=== PATIENT | male | born 1995 | race Caucasian/White ===

== ENCOUNTER 2018-10-12 18:30 | Emergency (ER) | payer OTHER ==
--- NOTE | 2018-10-12 19:41 | CT ---
EXAMINATION TYPE: CT brain karolyn wo con DATE OF EXAM: 10/12/2018 COMPARISON: 12/09/2013 HISTORY: 23-year-old male with Headache post fall CT DLP: 1279 mGycm Automated exposure control for dose reduction was used. Technique: Examination of the head was done in axial plane without intravenous contrast. Coronal and sagittal reconstructions performed. CT of the cervical spine was obtained in axial plane without intravenous injection of contrast mater ial. Coronal and sagittal reformatted images were obtained from the axial views for evaluation of f ractures, spinal alignment and canal. FINDINGS: Head: There is no evidence of acute intracranial hemorrhage, acute ischemic changes, mass, mass-effect, or extra-axial fluid collection. There is no effacement of cerebral sulci or basal subarachnoid cister ns. There is no hydrocephalus. There is no midline shift. Turner-white matter distinction is preserv ed. Scattered mild to moderate mucosal thickening ethmoid air cells. Orbits and globes are intact. Mastoi d air cells are well pneumatized. Cervical spine: The alignment of the cervical spine is normal on coronal and reformatted images. Dextroconvex curvatu re centered along the cervicothoracic junction may be positional. Scattered cervical lymph nodes shelly uring up to 1.2 cm likely reactive/post inflammatory. Straightening of the normal cervical lordosis. There is no cranial vertebral abnormality. Fracture of the cervical spine is not seen. There is no ev idence of focal disk herniation. Assessment of the spinal canal from C6-C7 and below is limited due t o artifact from patient's shoulders. Sagittal and coronal reformatted images confirm above findings. COMBINED IMPRESSION: 1. No acute intracranial abnormality seen. 2. No acute fracture or malalignment of the cervical spine. Dextroconvex curvature along the cervicot horacic junction can be be positional, or due to scoliosis, or muscle spasm. 3. Mild chronic ethmoid sinus disease.
[2018-10-12 19:58] VITALS: RESP 16
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
[2018-10-12 20:43] VITALS: BP 125/67; PULSE 62; TEMP 97.8
== END 2018-10-12 20:40 | disposition home or self-care (01) ==
LOC: EC 18:30
DX: S06.0X9A Concussion with loss of consciousness of unspecified duration, initial encounter (principal); J32.2 Chronic ethmoidal sinusitis; F17.200 Nicotine dependence, unspecified, uncomplicated; W01.198A Fall on same level from slipping, tripping and stumbling with subsequent striking against other object, initial encounter; Y93.02 Activity, running
CPT/HCPCS: 70450; 72125; 99284

== ENCOUNTER 2021-05-06 21:28 | Emergency (ER) | payer OTHER ==
[2021-05-06 22:45] VITALS: RESP 18; TEMP 98.8
[2021-05-07 00:56] VITALS: BP 137/88; PULSE 88
[2021-05-07] MEDS ORDERED: SODIUM CHLORIDE 0.9% 1,000 ML IV STA (01:01)
[2021-05-07] MEDS ORDERED: MORPHINE SULFATE 4 MG/ML SYRINGE IV STA (01:01)
[2021-05-07] MEDS ORDERED: PANTOPRAZOLE 40 MG/10 ML VIAL IVP STA (01:01)
[2021-05-07] MEDS ORDERED: ONDANSETRON 4 MG/2 ML VIAL IVP STA (01:01)
--- NOTE | 2021-05-07 01:02 | ED ---
Abdominal Pain HPI - General Chief Complaint: Abdominal Pain Stated Complaint: Vomiting Time Seen by Provider: 05/07/21 00:48 Source: patient, RN notes reviewed, old records reviewed Mode of arrival: ambulatory Limitations: no limitations - History of Present Illness Initial Comments: This is a 26-year-old male DF for evaluation today. Patient Dese for evaluation of diffuse and generalized abdominal pain at times cramping at times localized. Symptoms began after doing some heavy lifting today at work. Patient has positive nausea positive vomiting multiple times tonight. Otherwise no recent travel history no sick contacts no fevers. Patient again aside from upper EGD and lower colonoscopy has no other recent medical history. Patient had those evaluations due to vomiting blood. Patient has no other complaints MD Complaint: abdominal pain, other (Nausea vomiting) -: hour(s) Location: diffuse, periumbilical Radiation: none Migration to: no migration Severity: moderate Severity scale (1-10): 7 Quality: cramping, stabbing Consistency: intermittent Improves With: nothing Worsens With: nothing Context: recent surgery/procedure Associated Symptoms: nausea, vomiting Treatments Prior to Arrival: other (none) - Related Data Home Medications Medication Instructions Recorded Confirmed Pantoprazole [Protonix] 40 mg PO DAILY 03/28/21 05/03/21 Allergies Allergy/AdvReac Type Severity Reaction Status Date / Time No Known Allergies Allergy Verified 05/06/21 22:41 Review of Systems ROS Statement: Those systems with pertinent positive or pertinent negative responses have been documented in the HPI. ROS Other: All systems not noted in ROS Statement are negative. Past Medical History Past Medical History: No Reported History History of Any Multi-Drug Resistant Organisms: None Reported Past Surgical History: No Surgical Hx Reported Past Psychological History: Anxiety, Depression Smoking Status: Current every day smoker Past Alcohol Use History: None Reported Past Drug Use History: None Reported General Exam Limitations: no limitations General appearance: alert, in no apparent distress Head exam: Present: atraumatic, normocephalic, normal inspection Eye exam: Present: normal appearance, PERRL, EOMI. Absent: scleral icterus, conjunctival injection, periorbital swelling ENT exam: Present: normal exam, mucous membranes moist Neck exam: Present: normal inspection. Absent: tenderness, meningismus, lymphadenopathy Respiratory exam: Present: normal lung sounds bilaterally. Absent: respiratory distress, wheezes, rales, rhonchi, stridor Cardiovascular Exam: Present: regular rate, normal rhythm, normal heart sounds. Absent: systolic murmur, diastolic murmur, rubs, gallop, clicks GI/Abdominal exam: Present: soft, tenderness (Epigastric), normal bowel sounds. Absent: distended, guarding, rebound, rigid Extremities exam: Present: normal inspection, full ROM, normal capillary refill. Absent: tenderness, pedal edema, joint swelling, calf tenderness Back exam: Present: normal inspection Neurological exam: Present: alert, oriented X3, CN II-XII intact Psychiatric exam: Present: normal affect, normal mood Skin exam: Present: warm, dry, intact, normal color. Absent: rash Course Vital Signs 05/06/21 05/07/21 22:41 00:55 Temperature 98.8 F Pulse Rate 95 88 Respiratory 18 18 Rate Blood Pressure 131/87 137/88 O2 Sat by Pulse 100 97 Oximetry - Reevaluation(s) Reevaluation #1: 05/07/21 01:09 Medical record is reviewed Reevaluation #2: 05/07/21 02:32 Symptoms remained improved here in the ER without pain Reevaluation #3: 05/07/21 02:33 Patient informed results and questions answered Medical Decision Making - Medical Decision Making 26 male DF for evaluation of abdominal pain significant. Significant abdominal pain that occurred after heavy lifting today and recent colonoscopy and EGD. Lab values computed tomography scan are normal patient can be discharged home - Lab Data Result diagrams: 05/07/21 01:16 05/07/21 01:16 Lab Results 05/07/21 05/07/21 05/07/21 Range/Units 01:16 01:16 01:16 WBC 11.0 H (3.8-10.6) k/uL RBC 5.23 (4.30-5.90) m/uL Hgb 17.4 (13.0-17.5) gm/dL Hct 50.4 (39.0-53.0) % MCV 96.4 (80.0-100.0) fL MCH 33.2 (25.0-35.0) pg MCHC 34.5 (31.0-37.0) g/dL RDW 13.5 (11.5-15.5) % Plt Count 304 (150-450) k/uL MPV 7.1 Neutrophils % 64 % Lymphocytes % 28 % Monocytes % 5 % Eosinophils % 2 % Basophils % 1 % Neutrophils # 7.1 (1.3-7.7) k/uL Lymphocytes # 3.0 (1.0-4.8) k/uL Monocytes # 0.5 (0-1.0) k/uL Eosinophils # 0.2 (0-0.7) k/uL Basophils # 0.1 (0-0.2) k/uL Sodium 138 (137-145) mmol/L Potassium 3.3 L (3.5-5.1) mmol/L Chloride 101 (98-107) mmol/L Carbon Dioxide 25 (22-30) mmol/L Anion Gap 12 mmol/L BUN 8 L (9-20) mg/dL Creatinine 0.76 (0.66-1.25) mg/dL Est GFR (CKD-EPI)AfAm >90 (>60 ml/min/1.73 sqM) Est GFR (CKD-EPI)NonAf >90 (>60 ml/min/1.73 sqM) Glucose 111 H (74-99) mg/dL Plasma Lactic Acid Lorne 1.8 (0.7-2.0) mmol/L Calcium 10.7 H (8.4-10.2) mg/dL Total Bilirubin 1.0 (0.2-1.3) mg/dL AST 42 (17-59) U/L ALT 39 (4-49) U/L Alkaline Phosphatase 72 (38-126) U/L Total Protein 7.4 (6.3-8.2) g/dL Albumin 4.7 (3.5-5.0) g/dL Amylase 44 (30-110) U/L Lipase 49 (23-300) U/L Serum Alcohol <10 mg/dL - Radiology Data Radiology results: report reviewed (CT abdomen and pelvis is negative for acute disease), image reviewed Disposition Clinical Impression: Abdominal pain Disposition: HOME SELF-CARE Condition: Good Instructions (If sedation given, give patient instructions): Abdominal Pain (ED) Is patient prescribed a controlled substance at d/c from ED?: No Referrals: Albino Araiza [Primary Care Provider] - 1-2 days
[2021-05-07 01:32] LABS: Basophils # (A) 0.1 k/uL (0-0.2); Basophils % (A) 1 %; Eosinophils # (A) 0.2 k/uL (0-0.7); Eosinophils % (A) 2 %; HCT 50.4 % (39.0-53.0); HGB 17.4 gm/dL (13.0-17.5); Lymphocytes % (A) 28 %; MCH 33.2 pg (25.0-35.0); MCHC 34.5 g/dL (31.0-37.0); MCV 96.4 fL (80.0-100.0); Mean Platelet Volume 7.1; Monocytes # (A) 0.5 k/uL (0-1.0); Monocytes % (A) 5 %; Neutrophils # (A) 7.1 k/uL (1.3-7.7); Neutrophils % (A) 64 %; Platelet Count 304 k/uL (150-450); RBC 5.23 m/uL (4.30-5.90); RDW 13.5 % (11.5-15.5)
[2021-05-07 01:42] LABS: ALT 39 U/L (4-49); AST 42 U/L (17-59); African American GFR (CKD) >90 (>60 ml/min/1.73 sqM); Albumin 4.7 g/dL (3.5-5.0); Alcohol <10 mg/dL; Alkaline Phosphatase 72 U/L (38-126); Amylase 44 U/L (30-110); Anion Gap 12 mmol/L; Blood Urea Nitrogen 8 mg/dL (9-20); Calcium 10.7 mg/dL (8.4-10.2); Carbon Dioxide 25 mmol/L (22-30); Chloride 101 mmol/L (98-107); Glucose 111 mg/dL (74-99); Lipase 49 U/L (23-300); Non-African American GFR(CKD) >90 (>60 ml/min/1.73 sqM); Potassium 3.3 mmol/L (3.5-5.1); Sodium 138 mmol/L (137-145); Total Protein 7.4 g/dL (6.3-8.2)
--- NOTE | 2021-05-07 02:31 | CT ---
EXAMINATION TYPE: CT abdomen pelvis w con DATE OF EXAM: 05/07/2021 COMPARISON: Abdominal pain HISTORY: Abd. pain CT DLP: 724.2 mGycm Automated exposure control for dose reduction was used. CONTRAST: Performed with IV Contrast, patient injected with 100 mL of Isovue 300. Images obtained from the diaphragm to the floor the pelvis with IV contrast. Lung bases are clear. There is no pleural effusion. Heart size is normal. There is no pericardial eff usion. Liver spleen pancreas stomach gallbladder appear intact. The bile ducts are not dilated. There is no adrenal mass. Kidneys show satisfactory contrast opacification. There is no hydronephrosi s. Ureters are not dilated. Appendix is posterior and appears normal. There is no retroperitoneal melvin nopathy. Delayed images show normal renal excretion. Bladder distends smoothly. There is no inguinal hernia. There is no free fluid in the pelvis. There is no evidence of pelvic mass. There is no mesenteric edema. There is no ascites or free air. There is no bowel obstruction. The lumbar vertebrae have normal alignment. Posterior elements are intact. There is no compression fr acture. Bony pelvis is intact. The hip joints are intact. IMPRESSION: Negative CT scan of the abdomen pelvis. Normal appendix. Normal exam.
[2021-05-07] MEDS ORDERED: POTASSIUM CHLORIDE ER 20 MEQ TAB.ER PO STA (02:32)
== END 2021-05-07 03:09 | disposition home or self-care (01) ==
LOC: EC 21:28
DX: R10.84 Generalized abdominal pain (principal); F41.9 Anxiety disorder, unspecified; F32.A Depression, unspecified; F17.200 Nicotine dependence, unspecified, uncomplicated
CPT/HCPCS: 99284; 96374; 96375 ×2; 96361; 36415; 80053; 82150; 83605; 83690; 85025; 80320; 74177; J2270; J2405; C9113; Q9967

== ENCOUNTER 2022-01-01 16:24 | Inpatient (IN) | payer OTHER ==
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
[2022-01-01] MEDS ORDERED: HALOPERIDOL LACTATE 5 MG/ML 1 ML VIAL IM PRN (20:28)
[2022-01-01] MEDS ORDERED: ACETAMINOPHEN TAB 325 MG TAB PO PRN (20:28)
[2022-01-01] MEDS ORDERED: MAGNESIUM HYDROXIDE 2,400 MG/10 ML CUP PO PRN (20:28)
[2022-01-01] MEDS ORDERED: MAG HYDROX/AL HYDROX/SIMETH 30 ML CUP PO PRN (20:28)
[2022-01-01] MEDS: chlordiazePOXIDE 25 MG CAP PO SCH (21:20)
[2022-01-01] MEDS: LITHIUM CARBONATE 150 MG CAP PO SCH (21:20)
[2022-01-01] MEDS: lamoTRIgine 25 MG TAB PO SCH (21:20)
[2022-01-01] MEDS: diazePAM 5 MG TAB PO SCH (21:20)
[2022-01-01 22:01] LABS: AST 51 U/L (17-59); Lithium <0.2 mmol/L
--- NOTE | 2022-01-02 02:29 | P.MDCNMH ---
History of Present Illness H&P Date: 01/02/22 Chief Complaint: Medical [facility] 26 year old male with bipolar disorder, PTSD he is Seeking help for suicidal ideation he denies any hallucinations. he follows up with a therapist, however he could not schedule an appointment for meds adjustment. he denies any medical concerns , denies any fever chills, nausea vomiting, abd pain , SOB or chest pain , denies any URI. he admits to heavy smoking, occasional magic mushroom, and heavy daily alcohol consumption, last alcoholic drink yesterday Review of Systems Pertinent positives as noted in HPI. All other systems were reviewed and are negative Past Medical History Past Medical History: No Reported History History of Any Multi-Drug Resistant Organisms: None Reported Past Surgical History: No Surgical Hx Reported Past Psychological History: Anxiety, Depression Smoking Status: Current every day smoker Past Alcohol Use History: Abuse, Daily, Heavy Past Drug Use History: Marijuana - Past Family History family Family Medical History: Coronary Artery Disease (CAD), Diabetes Mellitus Medications and Allergies Home Medications Medication Instructions Recorded Confirmed Type Pantoprazole [Protonix] 40 mg PO DAILY 03/28/21 01/01/22 History ARIPiprazole [Abilify] 15 mg PO DAILY 01/01/22 01/01/22 History Citalopram Hydrobromide [CeleXA] 10 mg PO DAILY 01/01/22 01/01/22 History [place] Carbonate 150 mg PO BID 01/01/22 01/01/22 History lamoTRIgine [LaMICtal] 50 mg PO BID 01/01/22 01/01/22 History Allergies Allergy/AdvReac Type Severity Reaction Status Date / Time No Known Allergies Allergy Verified 01/01/22 21:42 Physical Exam Vitals: Vital Signs Temp Pulse Pulse Resp BP BP Pulse Ox 01/01/22 21:33 98.6 F 75 134/72 01/01/22 17:07 98.2 F 104 H 16 135/79 96 Intake and Output 01/01/22 01/01/22 01/02/22 14:59 22:59 06:59 Other: Weight 74.843 kg Constitutional: No acute distress, conversant, Eyes: Anicteric sclerae, moist conjunctiva, Pupils equal round reactive to light ENMT: NC/AT Oropharynx clear, no erythema, or exudates Neck: Supple, no masses, or JVD No carotid bruits No thyromegaly Lungs: Clear to auscultation Clear to percussion Normal respiratory effort, no accessory muscle use Cardiovascular: Heart regular in rate and rhythm, No murmurs, gallops, or rubs No peripheral edema Abdominal: Soft Nontender, no guarding, rebound or rigidity Abdomen moving with respiration Normoactive bowel sounds Skin: Normal temperature, tone, texture, turgor No induration No subcutaneous nodules No rash, lesions No ulcers Extremities: No digital cyanosis No clubbing Pedal pulses intact and symmetrical Radial pulses intact and symmetrical No calf tenderness Psychiatric: Alert and oriented to person, place and time Neuro Muscles Strength 5/5 in all 4 extremities Sensation to light touch grossly present throughout Cranial nerves II-XII grossly intact Lymphatics: no palpable cervical or supraclavicular lymph nodes Cranial Nerve Examination - Cranial Nerves Cranial Nerve II- Optic: Intact Cranial Nerve III- Oculomotor: Intact Cranial Nerve IV- Trochlear: Intact Cranial Nerve V- Trigeminal: Intact Cranial Nerve - Abducens: Intact Cranial Nerve VII- Facial: Intact Cranial Nerve VIII- Auditory: Intact Cranial Nerve IX- Glossopharyngeal: Intact Cranial Nerve X- Vagus: Intact Cranial Nerve XI- Accessory: Intact Cranial Nerve XII- Hypoglossal: Intact Assessment and Plan Assessment: depressed mood, suicidal ideation bipolar disorder management per psych alcohol abuse with heavy daily consumption counseled to quit alcohol librium TID monitor for alcohol withdrawal syndrome thiamine tobacco use nicotine replacement therapy counseled to quit smoking follow up labs Thank you for allowing us to participate in the care of this patient. We will follow peripherally. Do not hesitate to contact us with questions. Someone can be reached from the [facility] [place] hospitalist group at all hours of the day at [phone].
[2022-01-02] MEDS: lamoTRIgine 25 MG TAB PO SCH (08:37)
[2022-01-02] MEDS: THIAMINE 100 MG TAB PO SCH (08:37)
[2022-01-02] MEDS: PANTOPRAZOLE 40 MG TABLET PO SCH (08:37)
[2022-01-02] MEDS: MULTIVITAMINS, THERA 1 EACH TAB PO SCH (08:37)
[2022-01-02] MEDS: FOLIC ACID 1 MG TAB PO SCH (08:38)
[2022-01-02] MEDS: diazePAM 5 MG TAB PO SCH (08:38)
[2022-01-02] MEDS: ARIPiprazole 15 MG TAB PO SCH (08:38)
[2022-01-02] MEDS: chlordiazePOXIDE 25 MG CAP PO SCH ×4 (08:38→20:11)
[2022-01-02] MEDS: LITHIUM CARBONATE 150 MG CAP PO SCH ×2 (08:38→20:11)
[2022-01-02] MEDS: NICOTINE 14MG/24HR PATCH TRANSDERM SCH (08:38)
[2022-01-02] MEDS ORDERED: CITALOPRAM HYDROBROMIDE 10 MG TAB PO SCH (09:00)
[2022-01-02 09:03] LABS: Basophils # (A) 0.1 k/uL (0-0.2); Basophils % (A) 1 %; Eosinophils # (A) 0.1 k/uL (0-0.7); Eosinophils % (A) 2 %; HCT 47.4 % (39.0-53.0); HGB 16.1 gm/dL (13.0-17.5); Lymphocytes # (A) 2.6 k/uL (1.0-4.8); Lymphocytes % (A) 34 %; MCH 31.1 pg (25.0-35.0); MCHC 33.9 g/dL (31.0-37.0); MCV 91.7 fL (80.0-100.0); Mean Platelet Volume 7.7; Monocytes # (A) 0.5 k/uL (0-1.0); Monocytes % (A) 6 %; Neutrophils # (A) 4.4 k/uL (1.3-7.7); Neutrophils % (A) 57 %; Platelet Count 275 k/uL (150-450); RBC 5.17 m/uL (4.30-5.90); RDW 11.9 % (11.5-15.5); WBC 7.7 k/uL (3.8-10.6)
[2022-01-02 09:25] LABS: ALT 52 U/L (4-49); AST 41 U/L (17-59); African American GFR (CKD) >90 (>60 ml/min/1.73 sqM); Albumin 4.7 g/dL (3.5-5.0); Alkaline Phosphatase 57 U/L (38-126); Anion Gap 11 mmol/L; Blood Urea Nitrogen 16 mg/dL (9-20); Calcium 9.2 mg/dL (8.4-10.2); Carbon Dioxide 28 mmol/L (22-30); Chloride 102 mmol/L (98-107); Glucose 102 mg/dL (74-99); Non-African American GFR(CKD) >90 (>60 ml/min/1.73 sqM); Sodium 141 mmol/L (137-145); Total Bilirubin 0.9 mg/dL (0.2-1.3); Total Protein 6.9 g/dL (6.3-8.2)
[2022-01-02] MEDS ORDERED: traZODone HCL 50 MG TAB PO PRN (11:59)
[2022-01-02 14:39] LABS: Chol/HDL Ratio 3.59 Ratio; LDL Cholesterol,Calculated 77.4 mg/dL (0.0-131.0)
--- NOTE | 2022-01-02 14:45 | P.HP ---
Psychiatric H&P - . H&P Date: 01/02/22 History & Physical: Allergies Allergy/AdvReac Type Severity Reaction Status Date / Time No Known Allergies Allergy Verified 01/01/22 21:42 Vital Signs Temp 98.6 F 01/01/22 21:33 Pulse 75 01/01/22 21:33 Resp 16 01/01/22 17:07 BP 134/72 01/01/22 21:33 Pulse Ox 96 01/01/22 17:07 FiO2 Intake & Output 01/01/22 01/02/22 01/02/22 18:59 06:59 18:59 Weight 74.843 kg 74.843 kg Laboratory Last Values WBC 7.7 k/uL (3.8-10.6) 01/02/22 08:10 RBC 5.17 m/uL (4.30-5.90) 01/02/22 08:10 Hgb 16.1 gm/dL (13.0-17.5) 01/02/22 08:10 Hct 47.4 % (39.0-53.0) 01/02/22 08:10 MCV 91.7 fL (80.0-100.0) 01/02/22 08:10 MCH 31.1 pg (25.0-35.0) 01/02/22 08:10 MCHC 33.9 g/dL (31.0-37.0) 01/02/22 08:10 RDW 11.9 % (11.5-15.5) 01/02/22 08:10 Plt Count 275 k/uL (150-450) 01/02/22 08:10 MPV 7.7 01/02/22 08:10 Neutrophils % 57 % 01/02/22 08:10 Lymphocytes % 34 % 01/02/22 08:10 Monocytes % 6 % 01/02/22 08:10 Eosinophils % 2 % 01/02/22 08:10 Basophils % 1 % 01/02/22 08:10 Neutrophils # 4.4 k/uL (1.3-7.7) 01/02/22 08:10 Lymphocytes # 2.6 k/uL (1.0-4.8) 01/02/22 08:10 Monocytes # 0.5 k/uL (0-1.0) 01/02/22 08:10 Eosinophils # 0.1 k/uL (0-0.7) 01/02/22 08:10 Basophils # 0.1 k/uL (0-0.2) 01/02/22 08:10 Sodium 141 mmol/L (137-145) 01/02/22 08:10 Potassium 4.0 mmol/L (3.5-5.1) 01/02/22 08:10 Chloride 102 mmol/L (98-107) 01/02/22 08:10 Carbon Dioxide 28 mmol/L (22-30) 01/02/22 08:10 Anion Gap 11 mmol/L 01/02/22 08:10 BUN 16 mg/dL (9-20) 01/02/22 08:10 Creatinine 1.03 mg/dL (0.66-1.25) 01/02/22 08:10 Est GFR (CKD-EPI)AfAm >90 (>60 ml/min/1.73 sqM) 01/02/22 08:10 Est GFR (CKD-EPI)NonAf >90 (>60 ml/min/1.73 sqM) 01/02/22 08:10 Glucose 102 mg/dL (74-99) H 01/02/22 08:[address] Glu mg/dL 115 01/02/22 08:10 Hemoglobin A1c 5.6 % (0.0-6.0) 01/02/22 08:10 Calcium 9.2 mg/dL (8.4-10.2) 01/02/22 08:10 Total Bilirubin 0.9 mg/dL (0.2-1.3) 01/02/22 08:10 AST 41 U/L (17-59) 01/02/22 08:10 ALT 52 U/L (4-49) H 01/02/22 08:10 Alkaline Phosphatase 57 U/L (38-126) 01/02/22 08:10 Total Protein 6.9 g/dL (6.3-8.2) 01/02/22 08:10 Albumin 4.7 g/dL (3.5-5.0) 01/02/22 08:10 TSH 3.180 mIU/L (0.465-4.680) 01/02/22 08:10 [place] <0.2 mmol/L 01/01/22 20:39 Coronavirus (PCR) Not Detected (Not Detectd) 01/01/22 19:55 01/02/22 14:37 IDENTIFYING DATA: Patient is a 26-year-old occasioned male who currently lives with his father, and a house, is unemployed. HPI: Patient presented to the hospital yesterday complaining of suicidal ideations and depression. Patient was admitted voluntarily to the mental health unit. He was seen today and appeared to be somewhat lethargic however is able t o cooperate fully with the interview. Patient states that he has ensued feeling suicidal and depressed lately. He claims that he is also feeling fairly lethargic today and believes that his mind is "foggy". He states that he believes he is on too high a dose of medications at this time. There was various cigarette cota over his arms and head different tattoos on his arms as well. He claims that he was feeling depressed at home and had a plan to hang himself. He states that he got the materials ready however changed his mind when he was thinking about his sister. He states that his mother committed suicide and states that it affected him and he does not affect his sister. He states that he feels hopeless and helpless at this time. He states that he is doing with problems with his finances due to losing his job about a month ago and also claims that his broke his girlfriend recently broke up with him. He states that he has been drinking heavily approximately a half to a full fifth a day of liquor. He claims that he is not having withdrawal symptoms at this time however does has a history of possible seizures and tremors in the past. He states that he does take his psychiatric meds regularly however claims that they're not helping him at this time. He states that he has had anxiety and also difficult time with sleep. He claims that his appetite has been on and off lately. Patient denies any current suicidal or homicidal ideations intent or plan. At this time patient denies any auditory or visual hallucinations. Patient denies any flight of ideas racing thoughts and increased in goal directed behavior. Patient does state that he has a history of having manic episodes and claims that he was diagnosed as "bipolar type II" by his psychiatrist in the past. Patient admits to using marijuana occasionally, cigarettes about 2 packs a day. Claims that he also has been drinking alcohol on and off since the age of [age] years old. Claims he has never been to rehab before. PAST PSYCHIATRIC HISTORY: Patient states that he has history of bipolar and anxiety and also alcohol use. Patient claims that he is currently taking lithium and Lamictal but also Celexa. Patient denies any previous psychiatric hospitalizations. She states that he currently follows up with Dr. Cali as his psychiatrist. States that he did have 1 suicide attempt in the past where he attempted to almost hang himself several months ago. PMH: As per ER report ALLERGIES: as per EMR CHEMICAL DEPENDENCY HISTORY: as per HPI FAMILY PSYCHIATRIC/SUBSTANCE USE HISTORY: Claims that his mother had depression and also completed suicide. SOCIAL HISTORY: Patient was born and raised in [place] and also in [facility]. He states that he now lives in [place]. He claims that he lives with his father in a house. He is unemployed. He states that he completed high school.. MENTAL STATUS EXAM: General Appearance: Patient appears to have longer hair, wearing glasses, sever al tattoos and cigarette burn ridley on his arms. stated age is mildly lethargic, attempts to cooperate. Patient appears to have poor hygiene and grooming. Behavior: Patient is seated without any agitated behavior. Withdrawn and appears to be lethargic. Speech: Patient's speech is fluent and nonpressured. Monotone Mood/Affect: Patient reports their mood is depressed and anxious, affect is congruent and constricted. Suicidality/Homicidality: Patient denies having any homicidal ideation intent or plan. Denies any suicidal ideations intent or plan Perceptions: Patient denies any visual hallucinations and denies any auditory hallucinations Though content/process: There is no evidence of any delusional thought content and thought process is linear and goal-directed. Memory and concentration: AOX3, grossly intact for the purposes of this session. Can spell "WORLD" backwards Judgment and insight: poor STRENGTHS/WEAKNESSES: strength is that patient is resilient. Weakness is that patient has poor judgment and is impulsive INTELLECT: average IMPRESSIONS: Bipolar disorder, current episode depressed Generalized anxiety disorder Alcohol use disorder severe Cannabis use disorder mild Nicotine dependence PLAN: -Patient is admitted under voluntary status to MHU for stabilization of psychiatric symptoms and safety. Patient has signed adult voluntary form and medication consent and is placed in patient's chart. -Medications : Will start patient on lithium 150 mg twice a day for mood stabilization/suicidal thoughts, increase Celexa to 20 mg daily at bedtime for anxiety/mood. Abilify 15 mg daily daily for mood stabilization. Trazodone 50 mg daily at bedtime when necessary for sleep. Discontinue Valium and replace with Librium 25 mg 4 times a day for alcohol withdrawal symptoms. -Ativan and Haldol PRN for agitation/aggression -Started thiamine, MVM for etoh use -CIWA protocol with Ativan PRN for ETOH withdrawal -Patient was counselled on substance abuse and desired to cut back on use. -Patient was informed of the risks, benefits and side effects of the medication and patient verbally consented to taking the medications. Patient signed med consent form and was placed in chart. -Internal Medicine consult to perform medical evaluation and physical. -NRT - nicotine patch -SW on board for discharge planning. Encourage patient to participate in groups to work on coping skills. Patient states that he may be interested in rehab. 01/02/22 14:44
[2022-01-02] MEDS: CITALOPRAM HYDROBROMIDE 20 MG TAB PO SCH (20:11)
[2022-01-03] MEDS: NICOTINE 14MG/24HR PATCH TRANSDERM SCH (08:21)
[2022-01-03] MEDS: ARIPiprazole 15 MG TAB PO SCH (08:22)
[2022-01-03] MEDS: MULTIVITAMINS, THERA 1 EACH TAB PO SCH (08:22)
[2022-01-03] MEDS: FOLIC ACID 1 MG TAB PO SCH (08:22)
[2022-01-03] MEDS: LITHIUM CARBONATE 150 MG CAP PO SCH ×2 (08:22→20:55)
[2022-01-03] MEDS: THIAMINE 100 MG TAB PO SCH (08:22)
[2022-01-03] MEDS: PANTOPRAZOLE 40 MG TABLET PO SCH (08:22)
[2022-01-03] MEDS: chlordiazePOXIDE 25 MG CAP PO SCH ×3 (08:23→20:55)
[2022-01-03] MEDS: NALTREXONE HCL 50 MG TAB PO SCH (10:34)
--- NOTE | 2022-01-03 10:34 | P.PN ---
Progress Note - Text Progress Note Date: 01/03/22 Interval History: Patient was seen taking part in group this morning and was directable and agre eable to speak with news writer in the office. Patient states that he feels better today. He claims he feels less "foggy". He claims that his withdrawal symptoms have been improving since yesterday. He states that she still had difficulty sleeping last night. He continues to state that he does have some anxiety and also some mild depression as well. He claims that he is trying to go to as many groups as he can and also eating fairly. At this time patient denies any suicidal or homical ideations, intent or plan. Patient denies any auditory, visual hallucinations and denies any paranoia or delusions. Patient denies any side effects from the medications and has been compliant with meds. Mental Status Exam: General Appearance: Patient appears to have longer hair, wearing glasses, several tattoos and cigarette burn ridley on his arms. attempts to cooperate. Patient appears to have improving hygiene and grooming. Behavior: Patient is seated without any agitated behavior. less Withdrawn to day. Speech: Patient's speech is fluent and nonpressured. Monotone Mood/Affect: Patient reports their mood is depressed and anxious, improving mildly, affect is congruent and constricted. Suicidality/Homicidality: Patient denies having any homicidal ideation intent or plan. Denies any suicidal ideations intent or plan Perceptions: Patient denies any visual hallucinations and denies any auditory hallucinations Though content/process: There is no evidence of any delusional thought content and thought process is linear and goal-directed. Memory and concentration: AOX3, grossly intact for the purposes of this session. Judgment and insight: Improving mildly IMPRESSIONS: Bipolar disorder, current episode depressed Generalized anxiety disorder Alcohol use disorder severe Cannabis use disorder mild Nicotine dependence Plan: -Patient continues to meet criteria for inpatient psychiatric admission for symptom stabilization and safety. Patient has signed adult voluntary form and medication consent and was placed in patient's chart. -Medications: lithium 150 mg twice a day for mood stabilization/suicidal thoughts, increase Celexa to 20 mg daily at bedtime for anxiety/mood. Abilify 1 5 mg daily daily for mood stabilization. Trazodone 50 mg daily at bedtime when necessary for sleep. decrease Librium 25 mg 3 times a day for alcohol withdrawal symptoms. added naltrexone 50 mg daily for etoh cravings. -When necessary Ativan and Haldol for agitation/aggression. -NRT - nicotine patch -SW on board for discharge planning. Encouraged the patient to participate in milieu. Patient claims that he is no longer interested in rehab at this time and wants to do AA meetings.
[2022-01-03] MEDS: CITALOPRAM HYDROBROMIDE 20 MG TAB PO SCH (20:55)
[2022-01-04 06:39] VITALS: BP 111/55; PULSE 84; RESP 14; TEMP 98
[2022-01-04] MEDS: FOLIC ACID 1 MG TAB PO SCH (08:05)
[2022-01-04] MEDS: THIAMINE 100 MG TAB PO SCH (08:05)
[2022-01-04] MEDS: MULTIVITAMINS, THERA 1 EACH TAB PO SCH (08:05)
[2022-01-04] MEDS: LITHIUM CARBONATE 150 MG CAP PO SCH (08:05)
[2022-01-04] MEDS: PANTOPRAZOLE 40 MG TABLET PO SCH (08:05)
[2022-01-04] MEDS: NALTREXONE HCL 50 MG TAB PO SCH (08:05)
[2022-01-04] MEDS: ARIPiprazole 15 MG TAB PO SCH (08:05)
[2022-01-04] MEDS: chlordiazePOXIDE 25 MG CAP PO SCH (08:06)
[2022-01-04] MEDS ORDERED: NICOTINE 21MG/24HR PATCH TRANSDERM SCH (09:00)
--- NOTE | 2022-01-04 09:31 | P.DS ---
Providers Date of admission: 01/01/22 20:23 Expected date of discharge: 01/04/22 Attending physician: Donato Ojeda MD Consults: 01/01/22 20:28 Consult Physician Routine Consulting Provider: Liza Mariee Consult Reason/Comments: medical management Do you want consulting provider notified?: Yes Primary care physician: Albino Araiza - Discharge Diagnosis(es) (1) Bipolar disorder current episode depressed Current Visit: Yes Status: Acute Priority: High (2) Generalized anxiety disorder Current Visit: Yes Status: Acute Priority: Medium (3) Alcohol use disorder, severe, dependence Current Visit: Yes Status: Acute Priority: High (4) Cannabis use disorder, mild, abuse Current Visit: Yes Status: Acute Priority: Medium (5) Nicotine dependence Current Visit: Yes Status: Acute Priority: Low Hospital Course: Admission HPI: Admission note was completed by newspaper writer "Patient is a 26-year-old occasioned male who currently lives with his father, and a house, is unemployed. Patient presented to the hospital yesterday complaining of suicidal ideations and depression. Patient was admitted voluntarily to the mental health unit. He was seen today and appeared to be somewhat lethargic however is able to cooperate fully with the interview. Patient states that he has ensued feeling suicidal and depressed lately. He claims that he is also feeling fairly lethargic today and believes that his mind is "foggy". He states that he believes he is on too high a dose of medications at this time. There was various cigarette cota over his arms and head different tattoos on his arms as well. He claims that he was feeling depressed at home and had a plan to hang himself. He states that he got the materials ready however changed his mind when he was thinking about his sister. He states that his mother committed suicide and states that it affected him and he does not affect his sister. He states that he feels hopeless and helpless at this time. He states that he is doing with problems with his finances due to losing his job about a month ago and also claims that his broke his girlfriend recently broke up with him. He states that he has been drinking heavily approximately a half to a full fifth a day of liquor. He claims that he is not having withdrawal symptoms at this time however does has a history of possible seizures and tremors in the past. He states that he does take his psychiatric meds regularly however claims that they're not helping him at this time. He states that he has had anxiety and also difficult time with sleep. He claims that his appetite has been on and off lately. Patient denies any current suicidal or homicidal ideations intent or plan. At this time patient denies any auditory or visual hallucinations. Patient denies any flight of ideas racing thoughts and increased in goal directed behavior. Patient does state that he has a history of having manic episodes and claims that he was diagnosed as "bipolar type II" by his psychiatrist in the past. Patient admits to using marijuana occasionally, cigarettes about 2 packs a day. Claims that he also has been drinking alcohol on and off since the age of [age] years old. Claims he has never been to rehab before." Hospital course: Upon admission to the unit patient was directable and agreeable to commence treatment and signed adult voluntary form. Patient got along well with other patients on the unit and followed unit protocol. Patient was compliant with the medications and denied any side effects throughout hospital course. Patient was started on lithium 150 mg twice a day for mood stabilization/suicidal thoughts, increased Celexa to 20 mg daily at bedtime for anxiety/mood, continued with Abilify 15 mg daily for mood stabilization, discontinued Lamictal. Restart the patient back on naltrexone 50 mg by mouth daily for alcohol cravings. Patient was also placed on Librium scheduled taper for alcohol withdrawal. Patient spoke of his stressors and engaged in therapy both group and individual. Patient was also seen by medical team for history and physical exam. Throughout the course of the hospitalization patient gradually improved with regards to mood, anxiety, sleep and became more future oriented with improved insight and judgment. On the day of discharge patient denied any suicidal or homicidal ideations intent or plan denied any auditory or visual hallucinations. Patient endorsed wanting to live for his health and family. The patient denied any access to guns or weapons. Patient denied any paranoia and did not endorse any delusions. Patient does have a significant history of substance abuse and was counseled on abstaining from all substances including alcohol and marijuana. Patient was offered however declined inpatient substance-abuse rehab. Patient wanted to do outpatient treatment for his alcohol use and also go to AA meetings. Patient was also counseled on the medications and need for regular compliance and was encouraged to follow-up with their outpatient appointment for mental health and also for primary care. Prior to discharge a family meeting will be arranged by social service worker to answer any questions and ensure safety upon discharge. Mental status exam: General Appearance: Patient appears to be thin, multiple tattoos, longer hair, glasses, stated age is alert, pleasant, and cooperative. Patient is in no acute distress and has improved hygiene and grooming Behavior: Patient is calmly seated without any agitated behavior. Speech: Patient's speech is fluent and nonpressured. Mood/Affect: Patient reports their mood is "better", affect is congruent and euthymic. Suicidality/Homicidality: Patient denies having any suicidal or homicidal ideation intent or plan. Perceptions: Patient denies any auditory or visual hallucinations. Though content/process: There is no evidence of any delusional thought content and thought process is linear and goal-directed. more future oriented Memory and concentration: AOX3, grossly intact for the purposes of this session. Can spell "WORLD" backwards correctly. Judgment and insight: improved with guarded prognosis Impression: Bipolar disorder, current episode depressed Alcohol use disorder severe Cannabis use disorder mild Generalized anxiety disorder Nicotine dependence Plan: -Continue with discharge today as patient has improved and stabilized psychiatrically and is not currently an imminent threat to himself and/or others. Patient will remain at chronically elevated risk for harm to self and/or others due to his polysubstance abuse. -Continue medications: [place] 150 mg twice a day for mood stabilization/suicidal thoughts, Abilify 15 mg daily for mood stabilization, Celexa 20 mg daily at bedtime for mood/anxiety, naltrexone 50 mg by mouth daily for alcohol cravings. Will give Librium 25 mg by mouth 2 days for alcohol cravings then discontinue. -Patient was counseled on the need for medication compliance and appropriate follow-up at mental health and also primary care for medical issues. Patient verbalized understanding and agreed. -Social work to arrange for and conduct family meeting to ensure safety upon discharge and answer any questions/concerns. Social work also to arrange for patients follow up appointments for psychiatric care along with follow up with primary care provider. -Patient counseled on abstaining from recreational drugs and marijuana and alcohol. Was informed/educated on the adverse effects on their physical and m ental health. Patient verbally agreed and understood. Patient was offered substance abuse treatment however declined at this time. -Patient was instructed to return to the hospital or seek immediate medical care if their psychiatric or medical symptoms do worsen or reoccur. Allergies Allergy/AdvReac Type Severity Reaction Status Date / Time No Known Allergies Allergy Verified 01/01/22 21:42 Laboratory Results WBC 7.7 k/uL (3.8-10.6) 01/02/22 08:10 RBC 5.17 m/uL (4.30-5.90) 01/02/22 08:10 Hgb 16.1 gm/dL (13.0-17.5) 01/02/22 08:10 Hct 47.4 % (39.0-53.0) 01/02/22 08:10 MCV 91.7 fL (80.0-100.0) 01/02/22 08:10 MCH 31.1 pg (25.0-35.0) 01/02/22 08:10 MCHC 33.9 g/dL (31.0-37.0) 01/02/22 08:10 RDW 11.9 % (11.5-15.5) 01/02/22 08:10 Plt Count 275 k/uL (150-450) 01/02/22 08:10 MPV 7.7 01/02/22 08:10 Neutrophils % 57 % 01/02/22 08:10 Lymphocytes % 34 % 01/02/22 08:10 Monocytes % 6 % 01/02/22 08:10 Eosinophils % 2 % 01/02/22 08:10 Basophils % 1 % 01/02/22 08:10 Neutrophils # 4.4 k/uL (1.3-7.7) 01/02/22 08:10 Lymphocytes # 2.6 k/uL (1.0-4.8) 01/02/22 08:10 Monocytes # 0.5 k/uL (0-1.0) 01/02/22 08:10 Eosinophils # 0.1 k/uL (0-0.7) 01/02/22 08:10 Basophils # 0.1 k/uL (0-0.2) 01/02/22 08:10 Sodium 141 mmol/L (137-145) 01/02/22 08:10 Potassium 4.0 mmol/L (3.5-5.1) 01/02/22 08:10 Chloride 102 mmol/L (98-107) 01/02/22 08:10 Carbon Dioxide 28 mmol/L (22-30) 01/02/22 08:10 Anion Gap 11 mmol/L 01/02/22 08:10 BUN 16 mg/dL (9-20) 01/02/22 08:10 Creatinine 1.03 mg/dL (0.66-1.25) 01/02/22 08:10 Est GFR (CKD-EPI)AfAm >90 (>60 ml/min/1.73 sqM) 01/02/22 08:10 Est GFR (CKD-EPI)NonAf >90 (>60 ml/min/1.73 sqM) 01/02/22 08:10 Glucose 102 mg/dL (74-99) H 01/02/22 08:[address] Glu mg/dL 115 01/02/22 08:10 Hemoglobin A1c 5.6 % (0.0-6.0) 01/02/22 08:10 Calcium 9.2 mg/dL (8.4-10.2) 01/02/22 08:10 Total Bilirubin 0.9 mg/dL (0.2-1.3) 01/02/22 08:10 AST 41 U/L (17-59) 01/02/22 08:10 ALT 52 U/L (4-49) H 01/02/22 08:10 Alkaline Phosphatase 57 U/L (38-126) 01/02/22 08:10 Total Protein 6.9 g/dL (6.3-8.2) 01/02/22 08:10 Albumin 4.7 g/dL (3.5-5.0) 01/02/22 08:10 Triglycerides 248.00 mg/dL (0.00-149.00) H 01/02/22 08:10 Cholesterol 176.00 mg/dL (0.00-200.00) 01/02/22 08:10 LDL Cholesterol, Calc 77.4 mg/dL (0.0-131.0) 01/02/22 08:10 VLDL Cholesterol, Calc 49.60 mg/dL (5.00-40.00) H 01/02/22 08:10 HDL Cholesterol 49.00 mg/dL (40.00-60.00) 01/02/22 08:10 Cholesterol/HDL Ratio 3.59 Ratio 01/02/22 08:10 TSH 3.180 mIU/L (0.465-4.680) 01/02/22 08:10 [place] <0.2 mmol/L 01/01/22 20:39 Coronavirus (PCR) Not Detected (Not Detectd) 01/01/22 19:55 Vital Signs Temp 98 F 01/04/22 06:25 Pulse 84 01/04/22 06:25 Resp 14 01/04/22 06:25 BP 111/55 01/04/22 06:25 Pulse Ox 96 01/03/22 06:15 FiO2 Patient Condition at Discharge: Stable Plan - Discharge Summary Discharge Rx Participant: No New Discharge Prescriptions: New Citalopram Hydrobromide [CeleXA] 20 mg PO HS 30 Days tab Thiamine [Vitamin B-1] 100 mg PO DAILY 30 Days tab Folic Acid 1 mg PO DAILY 30 Days tab Nicotine 21Mg/24Hr Patch [Habitrol] 1 patch TRANSDERM DAILY 14 Days patch chlordiazePOXIDE HCl [Librium] 25 mg PO DAILY 2 Days #2 cap Multivitamins, Thera [Multivitamin (formulary)] 1 each PO DAILY 30 Days tab Naltrexone HCl [Revia] 50 mg PO DAILY 30 Days tab Continue Pantoprazole [Protonix] 40 mg PO DAILY ARIPiprazole [Abilify] 15 mg PO DAILY 30 Days tab [place] Carbonate 150 mg PO BID 30 Days cap Discontinued lamoTRIgine [LaMICtal] 50 mg PO BID Citalopram Hydrobromide [CeleXA] 10 mg PO DAILY Discharge Medication List Pantoprazole [Protonix] 40 mg PO DAILY 03/28/21 [History] ARIPiprazole [Abilify] 15 mg PO DAILY 30 Days tab 01/04/22 [Rx] Citalopram Hydrobromide [CeleXA] 20 mg PO HS 30 Days tab 01/04/22 [Rx] Folic Acid 1 mg PO DAILY 30 Days tab 01/04/22 [Rx] [place] Carbonate 150 mg PO BID 30 Days cap 01/04/22 [Rx] Multivitamins, Thera [Multivitamin (formulary)] 1 each PO DAILY 30 Days tab 01/04/22 [Rx] Naltrexone HCl [Revia] 50 mg PO DAILY 30 Days tab 01/04/22 [Rx] Nicotine 21Mg/24Hr Patch [Habitrol] 1 patch TRANSDERM DAILY 14 Days patch 01/04/22 [Rx] Thiamine [Vitamin B-1] 100 mg PO DAILY 30 Days tab 01/04/22 [Rx] chlordiazePOXIDE HCl [Librium] 25 mg PO DAILY 2 Days #2 cap 01/04/22 [Rx] Follow up Appointment(s)/Referral(s): Albino Araiza [Primary Care Provider] - 1-2 days Activity/Diet/Wound Care/Special Instructions: Avoid the use of street drugs and alcohol. Take all prescriptions as pres cribed. When you are in need of refills on your medications, please contact your medical provider and/or outpatient psychiatrist to have this done. Please go to scheduled outpatient appointment for aftercare treatment. If symptoms return or become worse, call the crisis line at and/or go to the nearest emergency room for evaluation. Discharge Disposition: HOME SELF-CARE
== END 2022-01-04 12:14 | disposition home or self-care (01) | DRG 885 ==
LOC: EC 16:24 → 3MHU 20:23
PROVIDERS: ADMIT Psychiatry & Neurology Psychiatry; ATTEND Psychiatry & Neurology Psychiatry
DX: F31.30 Bipolar disorder, current episode depressed, mild or moderate severity, unspecified (principal); F10.239 Alcohol dependence with withdrawal, unspecified; R45.851 Suicidal ideations; F12.90 Cannabis use, unspecified, uncomplicated; F17.200 Nicotine dependence, unspecified, uncomplicated; F31.81 Bipolar II disorder; F41.1 Generalized anxiety disorder; Z20.822 Contact with and (suspected) exposure to COVID-19; Z79.899 Other long term (current) drug therapy; Z91.51 Personal history of suicidal behavior
CPT/HCPCS: 80053; 80061; 80178; 82075; 83036; 84443; 84450; 85025; 87635; 99285